=== PATIENT | female | born 1995 | race Caucasian/White ===

== ENCOUNTER → 2019-03-04 11:18 | Outpatient (CLI) | payer OTHER, SELFPAY ==
[2019-02-13 10:39] VITALS: BMI 32.8
[2019-03-04 12:08] LABS: Progesterone Level 6.21 ng/mL (See Comment)
== END ==
PROVIDERS: Family Provider Family Medicine; PCP Family Medicine; Referring Provider Obstetrics & Gynecology; Visit Provider Obstetrics & Gynecology
DX: E28.2 Polycystic ovarian syndrome (principal)
CPT/HCPCS: 36415; 84144

== ENCOUNTER → 2019-05-03 | Outpatient (CLI) | payer OTHER, SELFPAY ==
[2019-02-13 10:39] VITALS: BMI 32.8
[2019-05-03 17:17] LABS: Progesterone Level 20.71 ng/mL (See Comment)
== END | disposition home or self-care (01) ==
LOC: LAB 15:12
PROVIDERS: PCP Family Medicine; Referring Provider Nurse Practitioner Women's Health; Visit Provider Nurse Practitioner Women's Health
DX: N97.9 Female infertility, unspecified (principal)
CPT/HCPCS: 36415; 84144

== ENCOUNTER → 2019-06-10 | Outpatient (CLI) | payer OTHER, SELFPAY ==
[2019-06-10 09:48] VITALS: BMI 32.8
[2019-06-10 10:22] LABS: Absolute Lymphocyte Count 2.35 X10^3/uL (0.83-4.51); Absolute Neutrophil Count 7.8 X10^3/uL (2.0-7.7); Basophil# 0.05 X10^3/uL; Basophil% 0.5 % (0-1); Eosinophil# 0.08 X10^3/uL; Eosinophils% 0.7 % (0-5); Hematocrit 37.5 % (37-47); Hemoglobin 12.7 g/dL (12.0-15.0); Lymphocyte # 2.35 X10^3/ul (4.0); Lymphocyte % 21.2 % (19-41); Mean Corp Hgb Conc 33.9 g/dL (32-36); Mean Corpuscular Hgb 29.5 pg (27.0-32.0); Mean Corpuscular Volume 87.2 fL (81-99); Monocyte# 0.77 X10^3/uL; Monocyte% 6.9 % (0-10); NRBC Flagged by Analyzer 0 % (0-5); Neutrophil # 7.81 X10^3/uL (2.7-7.7); Neutrophil % 70.4 % (47-70); Platelet Count 404 K/mm3 (150-450); RBC Distribution Width CV 12.6 % (11.6-14.6); RBC Distribution Width SD 39.4 fl (35.1-43.9); White Blood Count 11.1 K/mm3 (4.4-11.0)
[2019-06-10 10:29] LABS: Glucose Challenge Gest 1H 50g 54 mg/dL (70-140)
[2019-06-10 11:38] LABS: HIV - WCH Non-Reactive (Nonreactive); Hepatitis B Surface Antigen Non-Reactive (Nonreactive); Hepatitis C Antibody Non-Reactive (Nonreactive)
[2019-06-10 12:40] LABS: Amphetamine Urine VISTA NEGATIVE (<1000 ng/mL); Barbiturate Urine VISTA NEGATIVE (< 200 ng/mL); Benzodiazepine Urine VISTA NEGATIVE (< 200 ng/mL); Cocaine Urine VISTA NEGATIVE (< 300 ng/mL); Ecstacy Urine VISTA NEGATIVE (< 500 ng/mL); Methadone Urine VISTA NEGATIVE (< 300 ng/mL); PCP Urine VISTA NEGATIVE (< 25 ng/mL); THC Urine VISTA NEGATIVE (< 50 ng/mL); Vista UDS pH Range 6
[2019-06-10 14:46] LABS: Chlamydia Trachomatis by PCR Negative (Negative); Neisserai gonorrhoeae by PCR Negative (Negative); Probe Check PASS; Sample Adequacy Control PASS; Specimen Processing Control PASS
[2019-06-13 02:25] LABS: Rapid Plasmin Reagin (RPR) NONREACTIVE (NONREACTIVE)
== END | disposition home or self-care (01) ==
PROVIDERS: PCP Family Medicine; Referring Provider Nurse Practitioner Women's Health; Visit Provider Nurse Practitioner Women's Health
DX: O99.210 Obesity complicating pregnancy, unspecified trimester (principal); Z3A.00 Weeks of gestation of pregnancy not specified
CPT/HCPCS: 36415; 80307; 82950; 85025; 86592; 86703; 86762; 86803; 86850; 86900; 86901; 87086; 87088; 87340; 87491; 87591

== ENCOUNTER → 2023-11-01 | Outpatient (CLI) | payer OTHER, SELFPAY ==
[2023-11-08 02:07] LABS: HPV APTIMA, High Risk Positive (Negative); HPV Genotype 16, Aptima Positive (Negative); HPV Genotype 18,45 Aptima Negative (Negative)
== END | disposition home or self-care (01) ==
PROVIDERS: PCP Family Medicine; Referring Provider Nurse Practitioner Family; Visit Provider Nurse Practitioner Family
DX: Z12.4 Encounter for screening for malignant neoplasm of cervix (principal)
CPT/HCPCS: 87624; 88175; G0145

== ENCOUNTER → 2023-12-11 | Outpatient (CLI) | payer OTHER, SELFPAY ==
--- NOTE | 2023-12-11 | IMM_PTH ---
PATIENT: DAVID VAN LOC: [facility] U#:[id number] AGE/SX: 28/F ROOM: RE12/11/[address]: Dr. Le Ortega DO : 1995 BED: DIS: 12/11/2023 SPEC #: [id number] RECD: 12/13/23 13:56 STATUS: CINDY REQ #: [id number] SUE: 12/11/23 00:[address]: Le Ortega DEPT: IMMUNOHISTOCHEMISTRY RECD BY: Alfredo Adorno ENTERED: 12/13/23 13:56 SP TYPE: IMMUNO OTHR DR: Dominique Goins PA-C Tissues: B - Uterine cervix, NOS Procedures: KI-67 (add) P40 (initial) PHYSICIAN & INSTITUTION [place] [id number] SPECIMEN INFORMATION: Tissue Source: B- 5o'clock biopsy Clinical Info: HPV+ (16 & 18) Specimen Number: [id number] CPT code: 02432,56603 METHODOLOGY: Deparaffinized sections of prefer/formalin-fixed tissue or PAP/DQ stained slides are incubated with monoclonal/polyclonal antibodies/oligonucleotide probes. Localization is made via biotin free immunoperoxidase method. Appropriate controls are performed and reacted as expected. Results on target cell population are indicated in the following table: RESULTS: ANTIBODY / CLONE RESULT Block B P16 (E6H4) positive, block like Ki-67 (30-9) positive, moderate These tests were developed and their performance characteristics determined by [facility]. They may not have been cleared or approved by the U.S. Food and Drug Administration. The FDA has determined that such clearance or approval is not necessary. The above immunohistochemical/dualISH markers are ordered and reviewed by the Pathologist. INTERPRETATION: Cyn Cervix, 5o'clock, biopsy: Consistent with moderate squamous dysplasia, EVER II (HSIL). AM. 12/14/2023
--- NOTE | 2023-12-11 | CER_PTH ---
PATIENT: DAVID VAN LOC: [facility]#:[id number] AGE/SX: 28/F ROOM: RE12/11/[address]: Dr. Le Ortega DO : 1995 BED: DIS: 12/11/2023 SPEC #: [id number] RECD: 12/11/23 14:08 STATUS: CINDY BOYDSrini #: [id number] SUE: 12/11/23 00:[address]: Le Ortega DEPT: SURGICAL PATHOLOGY RECD BY: Denny Oliveros ENTERED: 12/12/23 09:48 SP TYPE: CERV OTHR DR: Dominique Goins PA-C Tissues: A - Uterine cervix, NOS B - Endocervical Procedures: Surgery Specimen Level IV HEADER OPERATION: Colposcopy PRE-OP DIAGNOSIS: HPV + (16 and 18) TISSUE SUBMITTED: A- ECC B- 5o'clock MICROSCOPIC DIAGNOSIS A. Endocervix, curettings: Rare strips of benign superficial endocervix. The specimen is adherent to cytology brush. B. Cervix, 5o'clock, biopsy: Consistent with moderate squamous dysplasia, EVER II (HISL). Chronic inflammation. See comment. TANYAAnn Marie 12/13/2023 COMMENT B. Immunohistochemistry ([id number]) for surrogate HPV marker (p16) supports the above diagnosis. Case has been reviewed in consultation with Dr. Preciado who concurs with the above diagnosis. IDC:SJ MICROSCOPIC DESCRIPTION Slides are reviewed. GROSS DESCRIPTION A. Received in fixative is one container labeled with the patient's name and designated Endocervix. The specimen consists of minute fragments of light chaves soft tissue that measure in aggregate <0.1 x <0.1 x <0.1cm. The specimen is submitted in its entirety for cell block preparation. B. Received in fixative is one container labeled with the patient's name and designated 5o'clock. The specimen consists of an irregular fragment of light-chaves soft tissue measuring in aggregate 0.5 x 0.3 x 0.1cm. The specimen is totally submitted in one cassette. 12/12/2023 TC:0 CPT:01790o5
== END | disposition home or self-care (01) ==
LOC: LABSPEC 14:42
PROVIDERS: PCP Family Medicine; Referring Provider Obstetrics & Gynecology; Visit Provider Obstetrics & Gynecology
DX: N87.1 Moderate cervical dysplasia (principal)
CPT/HCPCS: 88305; 88341; 88342

== ENCOUNTER 2024-01-16 07:41 | Day surgery (SDC) | payer OTHER, SELFPAY ==
[2024-01-16] VITALS (9 sets, daily range): BP systolic 114–128; BP diastolic 61–74; PULSE 72–87; RESP 16–17; TEMP 36.6–36.8; O2SAT 95–100; BMI 39.5
--- NOTE | 2024-01-16 | EMB_PTH ---
PATHOLOGY RESULTS PATIENT: DAVID VAN LOC: [facility] U#:[id number] AGE/SX: 28/F ROOM: RE01/16/[address]: Dr. Le Ortega DO : 1995 BED: DIS: 01/16/2024 SPEC #: [id number] RECD: 01/16/24 13:16 STATUS: CINDY SEGUNDO #: [id number] SUE: 01/16/24 00:[address]: Le Ortega DEPT: SURGICAL PATHOLOGY RECD BY: Denny Oliveros ENTERED: 01/16/24 13:17 SP TYPE: ENDOM BX/C OTHR DR: Dominique Goins PA-C Tissues: Endometrium, NOS UTERINE CERVIX LEEP Procedures: Surgery Specimen Level IV Surgery Specimen Level V HEADER OPERATION: Leep PRE-OP DIAGNOSIS: EVER 2 HGSIL TISSUE SUBMITTED: A- Endocervical curettings, B- LEEP MICROSCOPIC DIAGNOSIS A. Endocervix, curettings (cellblock): Rare strips of benign glandular mucosa. B. LEEP colonization: Moderate to severe squamous dysplasia, EVER II-III (HSIL) and involving endocervical glands. Margins of excision with no pathologic change. Changes consistent with HPV cytopathic effects. See comment. 01/17/2024 COMMENT B. Immunohistochemistry ([id number]) for surrogate HPV marker (p16) supports the above diagnosis. Reference is made to the patient's cervical biopsy ([id number]) in which moderate squamous dysplasia (HSIL) was identified. Case has been reviewed in consultation with Dr. Preciado who concurs with the above diagnosis. IDC:SJ MICROSCOPIC DESCRIPTION Slides are reviewed. GROSS DESCRIPTION A. Received in fixative is one container labeled with the patient's name and designated Endocervical curettings. The specimen consists of a scant amount of soft tissue. The specimen is totally submitted for cell block preparation. B. Received in fixative is one container labeled with the patient's name and designated LEEP. The specimen consists of a piece of chaves indurated tissue consistent with LEEP colonization measuring 2.0 x 1.5 x 1.2cm. The specimen is not oriented. No mucosal lesion is identified. Non-mucosal surface is inked black. The specimen is partially opened at presumed to be 12o'clock. Endocervical margin is inked blue. The specimen is serially sectioned and submitted entirely in four cassettes as follows: 1- 12-3o'clock, 2- 3-6o'clock, 3-6-9o'clock, 4- 9-12o'clock. YOVANY/ 01/16/2024 TC:0 CPT:08673,40605
--- NOTE | 2024-01-16 | IMM_PTH ---
PATHOLOGY RESULTS PATIENT: DAVID VAN [place] [facility] [place][id number] AGE/SX: 28/F ROOM: RE01/16/[address]: Dr. Le Ortega DO : 1995 BED: DIS: 01/16/2024 SPEC #: [id number] RECD: 01/17/24 11:45 STATUS: CINDY SEGUNDO #: [id number] SUE: 01/16/24 00:[address]: Le Ortega DEPT: IMMUNOHISTOCHEMISTRY RECD BY: Alfredo Adorno ENTERED: 01/17/24 11:46 SP TYPE: IMMUNO OTHR DR: Dominique Goins PA-C Tissues: UTERINE CERVIX LEEP Procedures: p16 (initial) KI-67 (add) PHYSICIAN & INSTITUTION [place] [phone] SPECIMEN INFORMATION: Tissue Source: B- Lee Clinical Info: EVER 2 HGSIL Specimen Number: [id number] CPT code: 83268,36917 METHODOLOGY: Deparaffinized sections of prefer/formalin-fixed tissue or PAP/DQ stained slides are incubated with monoclonal/polyclonal antibodies/oligonucleotide probes. Localization is made via biotin free immunoperoxidase method. Appropriate controls are performed and reacted as expected. Results on target cell population are indicated in the following table: RESULTS: ANTIBODY / CLONE RESULT Block B3 P16 (E6H4) positive, block-like Ki-67 (30-9) positive, high Block B4 P16 (E6H4) positive, block-like Ki-67 (30-9) positive, high These tests were developed and their performance characteristics determined by [facility]. They may not have been cleared or approved by the U.S. Food and Drug Administration. The FDA has determined that such clearance or approval is not necessary. The above immunohistochemical/dualISH markers are ordered and reviewed by the Pathologist. INTERPRETATION: Cyn Shaikh colonization: Moderate to severe squamous dysplasia, EVER II-III (HSIL). 01/18/2024
--- NOTE | 2024-01-16 07:31 | HP.PCM_ITS ---
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 Required: No Is patient in pain?: No Allergies No Known Allergies Allergy (Verified 01/09/24 09:46) Medications ?Medication ?Instructions ?Recorded ?Confirmed ?Type NK 11/01/23 01/09/24 History Post menopausal: No Patient : No : No PFSH Medical History Wears contact lenses Wears glasses Alcohol use Anemia Gastric reflux Non-smoker Bone fracture (05/30/23) Surgical History Previous section (01/08/20) S/P wisdom tooth extraction Family History Father HypertensionMother Cancer skin Social History number of children: 2 Smoking Status: Never smoker alcohol intake: never substance use type: does not use caffeine: No what type of physical activity do you participate in: none seatbelt use: always do you feel safe at home: Yes additional social history: - Rajni Rao 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 History 2 Elective abortions Hx Para 1 Spontaneous abortions 1 Hx # Term Pregnancies Ectopic pregnancies Hx # Pregnancies Multiple births 1 # of living children 2 Past Pregnancies Del. Date Name GA/Weeks Outcome Route Bth Weight Gen [facility] 2016 spontaneous Unknown Sleene Unknown Madhu ROS Const ROS Unobtainable: All systems reviewed & are unremarkable except as noted in H Resp Resp: Reports system reviewed and no additional complaints, except as d ocumented; Denies cough GI GI: Reports as per HPI Psych Psych: Reports system reviewed and no additional complaints, except as documented Exam Const General: cooperative, healthy appearing, comfortable and no acute distress Resp Effort & Inspection: normal respiratory effort Skin General: no rashes or lesions noted Psych Appearance: grossly normal Speech and Movement: speech and movement normal Coding Level of Care Code Off vis,est,level 4 Diagnoses EVER II (cervical intraepithelial neoplasia II) N87.1 HGSIL (high grade squamous intraepithelial dysplasia) Assessment and Plan Assessment and Plan (1) EVER II (cervical intraepithelial neoplasia II): Status: Acute (2) HGSIL (high grade squamous intraepithelial dysplasia): Status: Acute Plan: After discussing the patient's diagnosis and treatment plan options, patient wishes to proceed with surgical management. I have discussed with the patient the risks, benefits, and alternatives of the procedure which include but are not limited to risks of anesthesia, bleeding, infection, possible damage to bowel, bladder, or surrounding vasculature which could lead to additional surgery to evaluate any complications. Patient agrees to procedure and wishes to proceed. ACOG/uptodate references given for additional information regarding procedure. plan is for LEEP procedure 01/16/24
[2024-01-16 08:06] LABS: Internal QC Validated? YES +Cl - CLEAR BKGD; Pregnancy, Urine Negative Negative
[2024-01-16 08:20] LABS: Hematocrit 43.8 % (37-47); Hemoglobin 14.7 g/dL (12.0-15.0); Mean Corp Hgb Conc 33.6 g/dL (32-36); Mean Corpuscular Hgb 29.1 pg (27.0-32.0); Mean Corpuscular Volume 86.7 fL (81-99); Mean Platelet Vol. 9.2 fl (6.2-12.0); Platelet Count 399 K/mm3 (150-450); RBC Distribution Width SD 40.5 fl (35.1-43.9); Red Blood Count 5.05 M/mm3 (4.2-5.4); White Blood Count 7.9 K/mm3 (4.4-11.0)
--- NOTE | 2024-01-16 08:37 | PRE.ANES_ITS ---
ASA Classification* ASA Classification ASA Classification: 2 Assessment & Plan Anesthesia* Anesthesia Assessment Anesthesia Assessment: Discussed sedation and/or anesthesia options, risks, benefits, and alternatives with patient/parents/legal guardian/POA. Questions invited. The patient/parents/legal guardian/POA seems to understand and agrees to proceed with anesthesia plan. Reviewed the physical assessment, medical history, allergy history and patient home medications list prior to surgery/procedure/anesthetic and documented any changes. Performed airway and anesthesia risk assessments. Anesthesia Type Anesthesia Type: MAC History Source History Obtained from:: Patient and Chart Anesthesia Focused Assessment* Temperature: 97.8 F Pulse Rate: 87 Blood Pressure: 127/74 Respiratory Rate: 17 Pulse Ox: 100 Oxygen Delivery Method: Room Air Airway Assessment Mouth opens: >3 cm Mallampati Score: III Teeth Condition: Intact Neck Range of motion (ROM): Full ROM Focused Labs Anesthesia Preop lab: CBC WBC 7.9 K/mm3 (4.4-11.0) 01/16/24 08:10 RBC 5.05 M/mm3 (4.2-5.4) 01/16/24 08:10 Hgb 14.7 g/dL (12.0-15.0) 01/16/24 08:10 Hct 43.8 % (37-47) 01/16/24 08:10 Plt Count 399 K/mm3 (150-450) 01/16/24 08:10 CHEMISTRY COAG Urine Test Negative Negative 01/16/24 07:50 Tst Clinic Negative 12/11/23 13:36 Pre-Assessment Diagnosis/Proposed Procedure Planned Operative Procedure(s): LEEP CONE Anesthesia History Anesthesia History - scientific artist: Anesthesia History - scientific artist Hx Hospitalization No 01/05/24 11:08 Any Problems With Anesthesia No 01/05/24 11:08 Cholinesterase deficiency No 01/05/24 11:08 You/Your Family Experience No 01/05/24 11:08 fever (hyperthermia) with Relationship Recent Exposure to Contagious No 01/16/24 08:02 Disease Does patient have nerve No 01/05/24 11:08 stimulator Patient instructed to have device shut off --Does patient have Pacemaker No 01/16/24 08:02 or ICD? When Was Last Pacemaker Check QUESTION #4 FULL TEXT: You/Your Family Experience fever (hyperthermia) with Anesthesia Last Oral Intake Last Oral intake: Last Oral Intake NPO since 00:00 01/16/24 08:02 Meds taken in AM with sips of No 01/16/24 08:02 water? Meds patient instructed to take am of surgery PONV PONV - scientific artist: PONV - scientific artist Female Yes 01/05/24 11:08 HX of Motion Sickness Yes 01/05/24 11:08 HX of N/V After Surgery No 01/05/24 11:08 Non-Smoker Yes 01/05/24 11:08 Duration of Surgery greater No 01/05/24 11:08 than 60 minutes Number of Risk Factors 3 01/05/24 11:08 PONV Score Moderate Risk 01/05/24 11:08 Height & Weight Height & Weight: Anesthesia: Height & Weight Height 5 ft 2 in 01/16/24 08:02 Weight: 98 kg 01/16/24 08:02 Body Mass Index (BMI) 39.5 01/16/24 08:02 Respiratory Assessment Respiratory Assessment - scientific artist: Respiratory Tract Infection Hx - scientific artist Hx Respiratory Tract Infection Yes: STREP THROAT/TREATED 01/05/24 11:08 Any additional information?: Yes Hx Respiratory Tract Infection: Yes (Patient has completed full course of amoxicillin.) STOP Sleep Apnea STOP Sleep Apnea - scientific artist: STOP Sleep Apnea - scientific artist Hx Hypertension No 01/05/24 11:08 Hx Sleep Apnea No 01/05/24 11:08 CPAP BIPAP Do you snore loudly (louder No 01/05/24 11:08 than talking or can be heard Do you often feel tired/ No 01/05/24 11:08 fatigued/ sleepy during daytime? Has anyone observed you stop No 01/05/24 11:08 breathing during sleep? STOP Results Negative 01/05/24 11:08 QUESTION #5 FULL TEXT : Do you snore loudly (louder than talking or can be heard through closed doors)? Tobacco Use History Tobacco Use History - scientific artist: Tobacco Use History - scientific artist Tobacco Use Smoking Status Never smoker 01/05/24 11:08 Hx Tobacco Use No 01/05/24 11:08 Years Smoking Packs Smoked per Day Smoking Cessation Date was within the last 15 years Hx Smoking Cessation Date Hx Smoking Cessation Counseling Hematologic Medial History Hematologic Hx - scientific artist: Hematologic Medical Hx - grain blender Hx of Blood Transfusion Yes 01/05/24 11:08 Hx of Transfusion in last 3 No 01/05/24 11:08 Months Date of Last Transfusion (if within last 3 months) Ever experience any problems No 01/05/24 11:08 with transfusion(s)? Specify any problems Hx of Preganancy in last 3 No 01/05/24 11:08 Months Nurse Filling Out Transfusion DSCHRIBER 01/05/24 11:08 & Questions: Date: 01/05/24 01/05/24 11:08 Time: 11:09 01/05/24 11:08 Patient unable to answer at this time (ie. confused, unrespo /Reproduction History /Reproductive History - scientific artist: /Reproductive Hx- scientific artist Hx Now No 01/05/24 11:08 Gestational Age (in weeks): EDC: Hx Hx Para Hx Section SAB No 01/09/24 09:46 [facility] Medical History Wears contact lenses Wears glasses Alcohol use Anemia Gastric reflux Non-smoker Bone fracture (05/30/23) Home Medications ?Medication ?Instructions ?Recorded ?Last Taken ?Type NK 11/01/23 Unknown History Allergy/AdvReac Type Severity Reaction Status Date / Time No Known Allergies Allergy Verified 01/09/24 09:46 Family History Father Hypertension Mother Cancer skin Surgical History Previous section (01/08/20) S/P wisdom tooth extraction Social History number of children: 2 Smoking Status: Never smoker alcohol intake: never substance use type: does not use caffeine: No what type of physical activity do you participate in: none seatbelt use: always do you feel safe at home: Yes additional social history: Vera- Rajni Rao 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
--- NOTE | 2024-01-16 09:40 | PCM.DC ---
Discharge Instructions Diet Discharge Diet: No restrictions Activity Discharge Activity: Return to Normal Activity and [address] (while taking narcotic pain mediations.) May resume sexual activity in: 4 weeks (Nothing in the vagina for 4 weeks.) Dressing / Incision Call your doctor if you observe: Fever of 101 or Higher and Using more than 1 pad per hour Follow Up Care Please Follow Up With: Le Ortega DO When: Call [phone] for follow-up appointment. Test Results: Test results from this visit will be discussed in further detail at your follow-up appointment, if applicable. Discharge Plan Admission Primary Reason for Your Visit: Loop Electrocautery excision procedure of the cervix Attending Provider: Le Ortega Primary Care Provider: Dominique Goins Instructions Print Language: Hungarian Discharge Orders/Prescriptions Prescriptions: No Action NK Referrals / Follow Up: Dominique Goins PA-C [Primary Care Provider] - Disposition Disposition (needs filled in before D/C Order can be placed): Home, Self Care
[2024-01-16] MEDS: Lidocaine 1% /Epi 1:100 (20ml) 20 ML Vial (09:47)
[2024-01-16] MEDS: Iodine/Potassium Iodide 14ML Bottle 1 DRP TOPICAL (09:48)
[2024-01-16] MEDS: FERRIC SUBSULFATE 8 GM SOLN (09:52)
--- NOTE | 2024-01-16 09:54 | OP.PCM_ITS ---
Report of Operation Date of Procedure: 01/16/24 Multi Select Codes Urinary/Genital Urinary/Genital CPT Codes: 76475 LEEP
--- NOTE | 2024-01-16 09:54 | PCM.OPRPT ---
Report of Operation Date of Procedure: 01/16/24 Pre-Operative Diagnosis: HGSIL (EVER II) pap Post-Operative Diagnosis: HGSIL (EVER II) pap Surgery/Procedure Performed:: loop electrocautery excisional procedure Description of Surgical Findings:: normal appearing cervix and vagina. Surgeon: Le Ortega children's program coordinator: None Type of Anesthesia: MAC and Topical Anesth Anesthesiologist: Marshal Parker Specimen's removed: ecc and cervical leep biopsy Drains: none Estimated Blood Loss (mL): 30cc Fluids Replaced: 30cc Description of Procedure: Patient was taken to the operating room and placed under MAC anesthesia prepped and draped in normal sterile fashion the dorsal lithotomy position. Paracervical block was placed with 1% lidocaine and and endocervical curetting's were collected. lugol's solution was applied to the cervis to show a squamocolumnar junction that was undisturbed. Using a loop electrode, the outer part of the cervix was removed including the squamocolumnar junction. The base of the cervix was cauterized around the borders and the base to obtain excellent hemostasis. Monsel's paste was placed and patient was awoken and taken recovery in stable condition. Procedure Start Time: 09:43 Procedure Stop Time: 09:53 Complications none Admit VTE Documentation VTE Present on Admission: No VTE Mechan Device Prophylaxis: SCD's VTE Pharm Prophylaxis ordered?: No Multi Select Codes Urinary/Genital Urinary/Genital CPT Codes: 32142 LEEP
--- NOTE | 2024-01-16 10:11 | PCM.POST.ANE ---
Anesthesia: Postop Eval I Current Vital Signs Temperature: 97.9 F Pulse Rate: 87 Blood Pressure: 118/61 Respiratory Rate: 16 Pulse Ox: 97 Oxygen Delivery Method: Room Air Assessment Airway patent: Yes Spontaneous unlabored respirations: Yes Mental status: Awake nausea: No Vomiting: No Anesthesia Complication: No Fluid Hydration Crystalloid volume administer (ml): 30 Total IV fluid infused: 30 Progress Note Anesthesia document: Postop Eval 1 completed: Yes
[2024-01-16] MEDS: HYDROcodone Bitartrate/Apap 5/325 Tablet PO (10:50)
--- NOTE | 2024-01-16 11:47 | POSTOPAN2_ITS ---
Anesthesia Postop Eval I Sum Postop Eval Completion status Anesthesia document: Postop Eval 1 completed: Yes Anesthesia Postop Eval I Summary Anesthesia Postop Eval I Summary: Anesthesia Postop Eval I: Assessment Summary Airway patent Yes 01/16/24 10:12 HOSPITAL [email or web address] Spontaneous unlabored Yes 01/16/24 10:12 HOSPITAL [email or web address] respirations Mental status Awake 01/16/24 10:12 HOSPITAL [email or web address] nausea No 01/16/24 10:12 HOSPITAL INTERN.JDEF Vomiting No 01/16/24 10:12 HOSPITAL INTERN.JDEF Anesthesia Postop Eval I: Fluid Summary Crystalloid volume administer 30 01/16/24 10:12 HOSPITAL INTERN.JDEF (ml) Colloids volume administered ( ml) Blood Product volume administered (ml) Total IV fluid infused 30 01/16/24 10:12 HOSPITAL [email or web address].JDEF Anesthesia Postop Eval I: Summary Notes Anesthesia Complication No 01/16/24 10:12 HOSPITAL INTERN.JDEF Anesthesia Complication Comment: Post-operative progress note Anesthesia: Postop Eval II Evaluation Mental status: Awake and Calm Pain Level: 1 nausea: No Vomiting: No Complications Anesthesia Complication: No
--- NOTE | 2024-01-16 11:47 | PCM.POSTANE2 ---
Anesthesia Postop Eval I Sum Postop Eval Completion status Anesthesia document: Postop Eval 1 completed: Yes Anesthesia Postop Eval I Summary Anesthesia Postop Eval I Summary: Anesthesia Postop Eval I: Assessment Summary Airway patent Yes 01/16/24 10:12 [email or web address] Spontaneous unlabored Yes 01/16/24 10:12 SAW [email or web address] respirations Mental status Awake 01/16/24 10:12 [email or web address] [email or web address] nausea No 01/16/24 10:12 SAW [email or web address].JDEF Vomiting No 01/16/24 10:12 SAW [email or web address] Anesthesia Postop Eval I: Fluid Summary Crystalloid volume administer 30 01/16/24 10:12 SAW [email or web address].JDEF (ml) Colloids volume administered ( ml) Blood Product volume administered (ml) Total IV fluid infused 30 01/16/24 10:12 SAW [email or web address].JDEF Anesthesia Postop Eval I: Summary Notes Anesthesia Complication No 01/16/24 10:12 SAW [email or web address].JDEF Anesthesia Complication Comment: Post-operative progress note Anesthesia: Postop Eval II Evaluation Mental status: Awake and Calm Pain Level: 1 nausea: No Vomiting: No Complications Anesthesia Complication: No
== END 2024-01-16 11:07 | disposition home or self-care (01) ==
LOC: SDC 07:42 → AC 07:43
PROVIDERS: PCP Family Medicine; Referring Provider Obstetrics & Gynecology; Visit Provider Obstetrics & Gynecology
PROC: 0UBC7ZZ Excision of Cervix, Via Natural or Artificial Opening (ICD-10-PCS; CPT 57522; principal; 2024-01-16 09:00)
DX: N87.1 Moderate cervical dysplasia (principal)
CPT/HCPCS: 57522; 00940; 81025; 85027; 86850; 86900; 86901; 88305; 88307; 88341; 88342; A4216; J2405

== ENCOUNTER → 2024-11-13 | Outpatient (CLI) | payer OTHER, SELFPAY ==
[2024-11-15 15:08] LABS: HPV APTIMA, High Risk Negative (Negative)
== END | disposition home or self-care (01) ==
LOC: LABSPEC 11:49
PROVIDERS: PCP Family Medicine; Referring Provider Nurse Practitioner Family; Visit Provider Nurse Practitioner Family
DX: N87.1 Moderate cervical dysplasia (principal); Z12.4 Encounter for screening for malignant neoplasm of cervix
CPT/HCPCS: 87624; 88175; G0145